=== PATIENT | female | born 1950 | race Caucasian/White ===

== ENCOUNTER → 2017-01-09 | Outpatient (CLI) | payer MEDICARE | END | disposition disaster alternative care site (69) | LOC: LGSMG 12:20 | DX: N28.9 Disorder of kidney and ureter, unspecified (principal) ==

== ENCOUNTER → 2017-01-09 | Outpatient (CLI) | payer MEDICARE, OTHER ==
--- NOTE | ~2017-01-09 | ECHO ---
Transthoracic Echocardiography Report (TTE) Demographics Patient Name HIREN SHRESTHA I Date of Study 01/09/2017 Patient Number [id number] Visit Number [id number] Date of 1950 Room Number Gender Female Number Age 66 year(s) Referring [employer]a [employer] Chente Springer RVT Physician MD Deejay Arechiga MD Physician Interpreting [employer] Physician Supervising Ordering Mana Bryson MD/MLP Physician Nurse Stress Plate Hanger Conclusions Contractility Score Summary Normal Left Ventricular contractility was noted. Summary The estimated left ventricular ejection fraction is 55%. Paradoxical septal motion The left ventricle is normal in size . Mild concentric left ventricular hypertrophy. Diastolic assessment reveals Grade I diastolic dysfunction. Mild tricuspid regurgitation by color Doppler. Procedure Type of Study TTE procedure:2D Echocardiogram. Procedure Date Date: 01/09/2017 Start: 02:25 PM Study Location: Echo Lab Technical Quality: Adequate visualization Indications:Heart Failure. Appropriate Use Criteria: 9 Patient Status: Routine HR: 52 bpm BP: 174/72 mmHg M-Mode/2D Measurements LV Diastolic Dimension: 3.67 cm LV Systolic Dimension: 2.33 cm LV Septum Diastolic: 1.22 cm LV PW Diastolic: 1.05 cm AO Root Dimension: 2.4 cm Cardiac Output: 3.31 l/min AV Cusp Separation: 1.5 cm RV Diastolic Dimension: 3.01 cm LA volume: 39 ml LVOT: 1.8 cm RV Base: 3.3 cm LVOT VTI: 25 cm RV Mid: 2.56 cm LV Stroke volume: 63.58 ml TAPSE: 2.33 cm TDI-S': 10.1 cm/s Doppler Measurements AV Peak Velocity: 1.43 m/s MV Peak E-Wave: 0.7 m/s AV Peak Gradient: 8.18 mmHg MV Peak A-Wave: 0.91 m/s AV Mean Gradient: 5 mmHg MV E/A Ratio: 0.76 LVOT Peak Velocity: 0.85 m/s MV P1/2t: 86 msec TR Gradient:21.34 mmHg PV Peak Velocity: 1.01 m/s Estimated RAP:3 mmHg PV Peak Gradient: 4.08 mmHg Estimated RVSP: 24 mmHg Estimated PASP: 24.34 mmHg E' Septal Velocity: 0.06 m/s A' Septal Velocity: 0.07 m/s E' Lateral Velocity: 0.08 m/s A' Lateral Velocity: 0.09 m/s Findings Left Ventricle The left ventricle is normal in size . Mild concentric left ventricular hypertrophy. Diastolic assessment reveals Grade I diastolic dysfunction. Right Ventricle Normal right ventricle structure and function. Left Atrium Normal left atrial size. Right Atrium Normal right atrial size. IVC measures 1.33 cm with inspiratory collapse. Mitral Valve Mild mitral annular calcification. Aortic Valve Normal aortic valve structure and function. Tricuspid Valve Normal tricuspid valve structure and function. Mild tricuspid regurgitation by color Doppler. Pulmonic Valve Normal pulmonic valve structure and function. Trivial pulmonic valve regurgitation by color Doppler. Pericardial Effusion No evidence of pericardial effusion. Miscellaneous Visualized portions of the aortic root and ascending aorta appear normal in size. Pleural Effusion No evidence of pleural effusion. Contractility Score LV regional wall motion:(0-Non visualized 1-Normal 2-Hypokinesis 3-Akinesis 4-Dyskinesis 5-Aneurysm) Signature dtt: AHSAN QUINTANILLA dtd: 01/09/17 1425 Physician Self Edit
== END | disposition disaster alternative care site (69) ==
LOC: GCAR 14:00
DX: I50.9 Heart failure, unspecified (principal); I07.1 Rheumatic tricuspid insufficiency

== ENCOUNTER → 2017-02-14 | Outpatient (CLI) | payer MEDICARE, OTHER | END | disposition disaster alternative care site (69) | LOC: LGSMG 13:06 | DX: I10 Essential (primary) hypertension (principal) ==